=== PATIENT | male | born 1975 | race African-American/Black ===

== ENCOUNTER 2024-08-20 16:43 | Emergency (ER) | payer OTHER ==
[~2024-08-20] VITALS: Ht 180.3 cm; Wt 99.7 kg
[2024-08-20 16:50] VITALS: O2SAT 97
[2024-08-20 17:15] LABS: BASOPHILS % 0.9 % (0.0-2.0); DIFFERENTIAL COMMENT 1; EOSINOPHILS % 0.4 % (0.0-5.0); HEMATOCRIT. 46.6 % (42.0-52.0); HEMOGLOBIN. 15.8 g/dL (14.0-18.0); LYMPHOCYTES % 25.5 % (20.0-50.0); MEAN CORPUSCULAR HEMOGLOBIN 33.5 pg (28.0-32.0); MEAN CORPUSCULAR HGB CONC 33.9 g/dL (31.0-37.0); MEAN CORPUSCULAR VOLUME 98.8 fL (80.0-94.0); MEAN PLATELET VOLUME 7.1 fl (7.4-10.4); NEUTROPHILS % 58.2 % (40.0-76.0); PLATELET 294 x1000/uL (130-400); RED BLOOD CELL COUNT 4.71 mill/uL (4.7-6.1); RED CELL DISTRIBUTION WIDTH 14.3 % (11.6-14.6); WHITE BLOOD COUNT 5.9 x1000/uL (4.5-11.0)
[2024-08-20 17:22] LABS: CHLORIDE 106 mEq/L (98-107); POTASSIUM 4.1 mEq/L (3.5-5.1); SODIUM 142 mEq/L (136-145)
[2024-08-20 17:23] LABS: CALCIUM 8.6 mg/dL (8.7-10.4); CARBON DIOXIDE 28 mEq/L (21-32)
[2024-08-20 17:28] LABS: CREATININE 1.6 mg/dL (0.6-1.3); GLUCOSE 120 mg/dL (70-105); TROPONIN I HIGH SENSITIVITY 53 ng/L (3.0-53)
[2024-08-20 17:30] LABS: UREA NITROGEN BLOOD < 5 mg/dL (9-23)
[2024-08-20] MEDS ORDERED: IBUP-2029 MT (18:11)
[2024-08-20] MEDS: LORAZEPAM 1MG TABLET PO ONE (18:37)
[2024-08-20 18:38] VITALS: BP 134/89; PULSE 87; RESP 18; TEMP 36.89184; O2SAT 98
== END 2024-08-20 19:39 | disposition home or self-care (01) ==
LOC: ER 16:43
DX: R07.89 Other chest pain (principal); R00.2 Palpitations; F41.9 Anxiety disorder, unspecified; F32.9 Major depressive disorder, single episode, unspecified
CPT/HCPCS: 36415; 71045; 80048; 84484; 85025; 93005; 99285

== ENCOUNTER 2024-08-24 10:01 | Inpatient (IN) | payer OTHER ==
[~2024-08-24] VITALS: Ht 180.3 cm; Wt 102.1 kg
[~2024-08-24 10:01] MED LIST: IBUP-2029 MT
[2024-08-24 10:28] LABS: BASOPHILS % 1.1 % (0.0-2.0); EOSINOPHILS % 0.2 % (0.0-5.0); HEMATOCRIT. 48.5 % (42.0-52.0); HEMOGLOBIN. 16.7 g/dL (14.0-18.0); LYMPHOCYTES % 26.6 % (20.0-50.0); MEAN CORPUSCULAR HEMOGLOBIN 33.9 pg (28.0-32.0); MEAN CORPUSCULAR HGB CONC 34.5 g/dL (31.0-37.0); MEAN CORPUSCULAR VOLUME 98.3 fL (80.0-94.0); MEAN PLATELET VOLUME 7.3 fl (7.4-10.4); MONOCYTES % 12.9 % (2.0-8.0); NEUTROPHILS % 59.2 % (40.0-76.0); PLATELET 323 x1000/uL (130-400); RED BLOOD CELL COUNT 4.94 mill/uL (4.7-6.1); RED CELL DISTRIBUTION WIDTH 14.4 % (11.6-14.6); WHITE BLOOD COUNT 5.5 x1000/uL (4.5-11.0)
[2024-08-24] MEDS: ASPIRIN 325MG EC TABLET PO ONE (10:28)
[2024-08-24] MEDS: LORAZEPAM 1MG TABLET PO ONE (10:28)
[2024-08-24 10:36] LABS: CHLORIDE 105 mEq/L (98-107); POTASSIUM 3.7 mEq/L (3.5-5.1); SODIUM 141 mEq/L (136-145)
[2024-08-24 10:37] LABS: CARBON DIOXIDE 29 mEq/L (21-32)
[2024-08-24 10:38] LABS: CALCIUM 8.6 mg/dL (8.7-10.4)
[2024-08-24 10:42] LABS: CREATININE 1.8 mg/dL (0.6-1.3); GLUCOSE 107 mg/dL (70-105)
[2024-08-24 10:43] LABS: TROPONIN I HIGH SENSITIVITY 42 ng/L (3.0-53)
[2024-08-24 10:44] LABS: ALANINE AMINOTRANSFERASE 72 IU/L (10-49); ALBUMIN 3.9 g/dL (3.2-4.8); ASPARTATE AMINOTRANSFERASE 191 IU/L (<34)
[2024-08-24 10:45] LABS: BILIRUBIN TOTAL 1.1 mg/dL (0.1-1.0)
[2024-08-24 11:10] LABS: UREA NITROGEN BLOOD < 5 mg/dL (9-23)
[2024-08-24] MEDS ORDERED: BENZTROPINE MESYLATE 1 MG/ML 2ML VIAL IM ONE (12:00)
[2024-08-24] MEDS: BENZTROPINE MESYLATE 1 MG/ML 2ML VIAL IM NR (12:38)
[2024-08-24 13:27] LABS: TROPONIN I HIGH SENSITIVITY 41 ng/L (3.0-53)
[2024-08-24] MEDS ORDERED: MORPHINE SULFATE 2 MG/ML INJ (NOT FOR IM USE) IV PRN (16:00)
[2024-08-24] MEDS ORDERED: IPRATROPIUM/ALBUTEROL 0.5-3(2.5)MG/3ML NEB HHN PRN (16:00)
[2024-08-24] MEDS ORDERED: NALOXONE HCL 0.4MG/ML VIAL IV PRN (16:00)
[2024-08-24] MEDS: IOHEXOL-350 100 ML BOTTLE ONE (16:27)
[2024-08-24] MEDS: ENOXAPARIN 40MG/0.4ML SYR SUBCUT SCH (17:26)
[2024-08-24 19:11] LABS: TROPONIN I HIGH SENSITIVITY 39 ng/L (3.0-53)
[2024-08-24] MEDS: MVI, ADULT NO.1 10 ML, FOLIC ACID 1 MG, THIAMINE HCL 100 MG in SODIUM CHLORIDE 0.9% 1,0... IV NR (19:32)
[2024-08-24] MEDS: LORAZEPAM 2MG/ML INJ IV PRN (19:32)
[2024-08-24] MEDS: CLONIDINE 0.1MG TABLET PO NR (21:58)
[2024-08-24 22:21] LABS: CREATINE KINASE MB FRACTION 3.7 ng/mL (0.5-3.6)
[2024-08-24 23:20] VITALS: BP 192/115; PULSE 99; RESP 22; TEMP 36.50292; O2SAT 95
[2024-08-25] VITALS (7 sets, daily range): BP systolic 151–191; BP diastolic 79–113; PULSE 92–109; RESP 14–22; TEMP 36.22512–37.16964; O2SAT 96–100
[2024-08-25 05:57] LABS: CARBON DIOXIDE 28 mEq/L (21-32); CHLORIDE 104 mEq/L (98-107); POTASSIUM 3.4 mEq/L (3.5-5.1); SODIUM 141 mEq/L (136-145)
[2024-08-25 05:59] LABS: CALCIUM 7.9 mg/dL (8.7-10.4)
[2024-08-25 06:03] LABS: CREATININE 1.5 mg/dL (0.6-1.3); GLUCOSE 75 mg/dL (70-105)
[2024-08-25 06:07] LABS: T4 FREE 1.67 ng/dL (0.89-1.76); THYROID STIMULATING HORMONE 4.12 uIU/mL (0.55-4.78)
[2024-08-25 06:13] LABS: UREA NITROGEN BLOOD < 5 mg/dL (9-23)
[2024-08-25 06:39] LABS: HEMATOCRIT. 43.3 % (42.0-52.0); HEMOGLOBIN. 14.5 g/dL (14.0-18.0); MEAN CORPUSCULAR HEMOGLOBIN 33.2 pg (28.0-32.0); MEAN CORPUSCULAR HGB CONC 33.6 g/dL (31.0-37.0); MEAN PLATELET VOLUME 7.9 fl (7.4-10.4); PLATELET 270 x1000/uL (130-400); RED BLOOD CELL COUNT 4.37 mill/uL (4.7-6.1); RED CELL DISTRIBUTION WIDTH 14.5 % (11.6-14.6); WHITE BLOOD COUNT 5.2 x1000/uL (4.5-11.0)
[2024-08-25 07:08] LABS: DIFFERENTIAL COMMENT 1
[2024-08-25] MEDS: CLONIDINE 0.1MG TABLET PO PRN (08:33)
[2024-08-25] MEDS: ACETAMINOPHEN 325MG TABLET PO PRN (09:03)
[2024-08-25] MEDS: QUETIAPINE FUMARATE 25MG TABLET PO SCH (10:12)
[2024-08-25] MEDS: BUSPIRONE HCL 10MG TABLET PO SCH (10:12)
[2024-08-25 17:59] LABS: ALANINE AMINOTRANSFERASE 55 IU/L (10-49); ALBUMIN 3.4 g/dL (3.2-4.8); ASPARTATE AMINOTRANSFERASE 114 IU/L (<34); BILIRUBIN DIRECT 0.7 mg/dL (<=3.0); BILIRUBIN TOTAL 1.6 mg/dL (0.1-1.0)
[2024-08-25 19:09] LABS: PLATELET ESTIMATE NORMAL
[2024-08-25] MEDS: DOXEPIN HCL 25MG CAPSULE PO SCH (21:15)
[2024-08-25] MEDS: HYDROCODONE/ACETAMINOPHEN 5/325MG TABLET PO PRN (21:16)
[2024-08-25] MEDS: ONDANSETRON HCL 4MG/2ML INJ IV PRN (21:34)
[2024-08-26] VITALS: BP 145/80; PULSE 90; RESP 20; TEMP 36.114; O2SAT 100
[2024-08-26 04:00] VITALS: BP 158/70; PULSE 85; RESP 20; TEMP 36.28068; O2SAT 100
[2024-08-26 08:00] VITALS: BP 144/75; PULSE 89; RESP 16; TEMP 36.55848; O2SAT 98
[2024-08-26 08:09] LABS: LITHIUM SERUM < 0.1 mmol/L (0.5-1.2)
[2024-08-26 12:00] VITALS: BP 136/79; PULSE 88; RESP 20; TEMP 36.6696; O2SAT 96
[2024-08-26 16:00] VITALS: BP 138/79; PULSE 88; RESP 20; TEMP 36.6696; TEMP 36.66960; O2SAT 96
[2024-08-26] MEDS: INFLUENZA VACCINE 05/PF 0.5 ML SYRINGE IM ONE (16:23)
[2024-08-26] MEDS ORDERED: QUET25TA PO (16:46)
[2024-08-26] MEDS ORDERED: DOXE25CA3 MT (16:46)
[2024-08-26] MEDS ORDERED: BUSP10TA4 PO (16:46)
[2024-08-26 17:04] VITALS: BP 136/79; PULSE 88; TEMP 98; O2SAT 96
== END 2024-08-26 18:55 | disposition home or self-care (01) | DRG 683 ==
LOC: ER 10:01 → 5WST 13:27 → EDBEDREQTM 13:37 → EDBEDREQ 13:37 → 5WST 16:31 → 7EST 22:58
PROVIDERS: ADMIT Internal Medicine; ATTEND Internal Medicine
DX: N17.9 Acute kidney failure, unspecified (principal); F10.239 Alcohol dependence with withdrawal, unspecified; I10 Essential (primary) hypertension; F39 Unspecified mood [affective] disorder; F32.A Depression, unspecified; F43.10 Post-traumatic stress disorder, unspecified; X58.XXXA Exposure to other specified factors, initial encounter; Y93.89 Activity, other specified; Y92.89 Other specified places as the place of occurrence of the external cause; Y99.8 Other external cause status; Z91.048 Other nonmedicinal substance allergy status
CPT/HCPCS: 36415; 71045; 71275; 76705; 80048; 80053; 80076; 80178; 82550; 82553; 83880; 84439; 84443; 84484; 85025; 85379; 90686; 93005; 99285; J0515; J1650; J2060; J2405; J3411; J3490; J7030; Q9967